=== PATIENT | female | born 2000 | race American Indian/Alaskan Native ===

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

== ENCOUNTER 2025-01-15 11:40 | Emergency (ER) | payer MEDICAID ==
[2025-01-15] MEDS: Lidocaine/Epineph/Tetracaine 3 ML Syringe TOP ONE (12:52)
== END 2025-01-15 13:48 | disposition home or self-care (01) ==
LOC: MW.ED 11:40
DX: L08.9 Local infection of the skin and subcutaneous tissue, unspecified (principal); Z88.0 Allergy status to penicillin; Z91.014 Allergy to mammalian meats; Z91.013 Allergy to seafood; Z91.048 Other nonmedicinal substance allergy status; Z91.012 Allergy to eggs; Z79.899 Other long term (current) drug therapy
CPT/HCPCS: 99283; A9270